=== PATIENT | female | born 1985 | race Caucasian/White ===

== ENCOUNTER 2020-02-26 03:11 | Observation (INO) ==
[2020-02-26] MEDS ORDERED: 0.9 % Sodium Chloride 1,000 ML IVC ONE (03:28)
[2020-02-26] MEDS ORDERED: Famotidine 20 MG/2 ML VIAL IVP ONE (03:28)
[2020-02-26] MEDS ORDERED: methylPREDNISolone 125 MG/2 ML VIAL IVP ONE (03:28)
[2020-02-26] MEDS ORDERED: EPINEPHrine 1 MG/ML VIAL IM ONE (07:00)
[2020-02-26] MEDS ORDERED: Ondansetron 4 MG/2 ML VIAL IVP PRN (07:22)
[2020-02-26] MEDS ORDERED: Naloxone 0.4 MG/ML INJ IVP PRN (07:22)
[2020-02-26 07:43] LABS: Basophils % 0.2 %; Eosinophils % 0.1 %; Hematocrit 44.2 % (35.3-44.9); Hemoglobin 14.4 g/dL (11.5-15.4); Immature Granulocytes % 0.7 % (0-4); Lymphocytes # 1.4 K/mcL (0.6-4.6); Lymphocytes % 8.9 %; Mean Corpuscular HGB Conc 32.6 g/dL (31.6-35.5); Mean Corpuscular Volume 85.8 fL (83.0-100.0); Monocytes # 0.2 K/mcL (0.0-1.3); Monocytes % 1.6 %; Neutrophils # 13.5 K/mcL (1.6-8.9); Platelet Count 245 K/mcL (140-400); Red Blood Count 5.15 M/mcL (3.82-4.97); Red Cell Distribution Width 13.2 % (11.5-14.5); Segmented Neutrophils % 88.5 %; White Blood Count 15.2 K/mcL (4.3-11.1)
[2020-02-26 08:28] LABS: Alanine Aminotransferase 15 Units/L (7-52); Albumin 3.9 g/dL (3.5-5.7); Albumin/Globulin Ratio 1.4 (1.1-2.2); Alkaline Phosphatase 106 Units/L (34-104); Aspartate Amino Transferase 12 Units/L (13-39); BUN/Creatinine Ratio 16 (6-26); Bilirubin,Total 0.4 mg/dL (0.3-1.0); Blood Urea Nitrogen 13 mg/dL (6-20); C-Reactive Protein 24 mg/L (Less than 10); Calcium 8.6 mg/dL (8.6-10.3); Carbon Dioxide 21 mEq/L (23-29); Chloride 106 mEq/L (98-107); Globulin 2.8 g/dL (2.4-3.5); Glucose 188 mg/dL (70-105); Osmolality,Calculated 283 (280-300); Potassium 4.5 mEq/L (3.5-5.1); Sodium 134 mEq/L (136-145); Total Protein 6.7 g/dL (6.4-8.9); eGFR For African Americans > 60 (> 60); eGFR For Non-African Americans > 60 (> 60)
[2020-02-26] MEDS ORDERED: Loratadine 10 MG TABLET PO ONE (09:21)
[2020-02-26] MEDS ORDERED: *HR* Enoxaparin 40 MG/0.4 ML SYRINGE SQ ONE (09:37)
[2020-02-26] MEDS: 0.9 % Sodium Chloride 1,000 ML IVC SCH ×2 (09:50→17:40)
[2020-02-26] MEDS: Famotidine 20 MG TABLET PO SCH (21:52)
[2020-02-26] MEDS: Loratadine 10 MG TABLET PO SCH (21:52)
[2020-02-27] MEDS: *HR* Enoxaparin 40 MG/0.4 ML SYRINGE SQ SCH (05:16)
[2020-02-27 06:22] LABS: BUN/Creatinine Ratio 16 (6-26); Blood Urea Nitrogen 13 mg/dL (6-20); Calcium 8.4 mg/dL (8.6-10.3); Carbon Dioxide 25 mEq/L (23-29); Chloride 107 mEq/L (98-107); Glucose 126 mg/dL (70-105); Osmolality,Calculated 288 (280-300); Potassium 3.7 mEq/L (3.5-5.1); Sodium 138 mEq/L (136-145); eGFR For African Americans > 60 (> 60); eGFR For Non-African Americans > 60 (> 60)
[2020-02-27] MEDS: Famotidine 20 MG TABLET PO SCH ×2 (08:03→20:13)
[2020-02-27] MEDS: predniSONE 20 MG TABLET PO SCH (08:03)
[2020-02-27] MEDS: Loratadine 10 MG TABLET PO SCH ×2 (08:03→20:13)
[2020-02-27 08:46] LABS: Estimated Average Glucose 151 mg/dl
[2020-02-27] MEDS ORDERED: Dextrose Gel 15 GM/37.5 ML TUBE PO PRN ×2 (11:54)
[2020-02-27] MEDS ORDERED: *HR* Dextrose 50 % in Water (Syg) 50 ML SYRINGE IVP PRN (11:54)
[2020-02-27] MEDS ORDERED: D5% in Water 1,000 ML IVC PRN (11:54)
[2020-02-27] MEDS: Insulin LISPRO 300 UNITS/3 ML VIAL SQ SCH ×2 (16:19→20:15)
[2020-02-27] MEDS ORDERED: Ketorolac 15 MG/ML VIAL IVP ONE (19:39)
[2020-02-28 02:16] LABS: Basophils % 0.2 %; Eosinophils % 0.3 %; Hematocrit 38.9 % (35.3-44.9); Immature Granulocytes % 0.5 % (0-4); Lymphocytes # 3.4 K/mcL (0.6-4.6); Lymphocytes % 28.1 %; Mean Corpuscular HGB Conc 31.9 g/dL (31.6-35.5); Mean Corpuscular Hemoglobin 27.7 pg (28.0-33.3); Monocytes # 0.4 K/mcL (0.0-1.3); Monocytes % 3.5 %; Neutrophils # 8.2 K/mcL (1.6-8.9); Platelet Count 230 K/mcL (140-400); Red Blood Count 4.47 M/mcL (3.82-4.97); Red Cell Distribution Width 13.4 % (11.5-14.5); Segmented Neutrophils % 67.4 %; White Blood Count 12.2 K/mcL (4.3-11.1)
[2020-02-28 02:19] LABS: Hemoglobin 12.4 g/dL (11.5-15.4)
[2020-02-28 02:28] LABS: BUN/Creatinine Ratio 14 (6-26); Blood Urea Nitrogen 14 mg/dL (6-20); Calcium 8.7 mg/dL (8.6-10.3); Carbon Dioxide 25 mEq/L (23-29); Chloride 104 mEq/L (98-107); Glucose 120 mg/dL (70-105); Osmolality,Calculated 286 (280-300); Potassium 3.7 mEq/L (3.5-5.1); Sodium 137 mEq/L (136-145); eGFR For African Americans > 60 (> 60); eGFR For Non-African Americans > 60 (> 60)
[2020-02-28] MEDS ORDERED: hydrOXYzine pamoate 25 MG CAPSULE PO PRN ×2 (02:50→03:32)
[2020-02-28] MEDS: *HR* Enoxaparin 40 MG/0.4 ML SYRINGE SQ SCH (05:48)
[2020-02-28] MEDS: Acetaminophen 325 MG TABLET PO PRN ×2 (08:30→20:03)
[2020-02-28] MEDS: predniSONE 20 MG TABLET PO SCH (08:31)
[2020-02-28] MEDS: Famotidine 20 MG TABLET PO SCH ×2 (08:31→20:03)
[2020-02-28] MEDS: Loratadine 10 MG TABLET PO SCH ×2 (08:32→20:03)
[2020-02-28] MEDS: Insulin LISPRO 300 UNITS/3 ML VIAL SQ SCH ×4 (08:35→20:07)
[2020-02-29] MEDS: *HR* OxyCODONE Immed Rel 5 MG TABLET PO PRN ×2 (00:16→08:54)
[2020-02-29 01:47] LABS: Hematocrit 34.8 % (35.3-44.9); Hemoglobin 11.4 g/dL (11.5-15.4); Mean Corpuscular HGB Conc 32.8 g/dL (31.6-35.5); Mean Corpuscular Hemoglobin 28.6 pg (28.0-33.3); Mean Corpuscular Volume 87.2 fL (83.0-100.0); Mean Platelet Volume 9.9 fL (9.4-12.4); Platelet Count 236 K/mcL (140-400); Red Blood Count 3.99 M/mcL (3.82-4.97); Red Cell Distribution Width 13.2 % (11.5-14.5); White Blood Count 12.5 K/mcL (4.3-11.1)
[2020-02-29] MEDS: Acetaminophen 325 MG TABLET PO PRN (05:04)
[2020-02-29] MEDS: *HR* Enoxaparin 40 MG/0.4 ML SYRINGE SQ SCH (05:05)
[2020-02-29 08:02] VITALS: BP 104/68
[2020-02-29] MEDS: Insulin LISPRO 300 UNITS/3 ML VIAL SQ SCH (08:34)
[2020-02-29] MEDS: Loratadine 10 MG TABLET PO SCH (08:46)
[2020-02-29] MEDS: predniSONE 20 MG TABLET PO SCH (08:46)
[2020-02-29] MEDS: Famotidine 20 MG TABLET PO SCH (08:46)
== END 2020-02-29 11:24 | disposition home or self-care (01) ==
LOC: 3BNU 03:11 → EMEROOARM 03:11 → 3BNU 08:20
PROVIDERS: ADMIT Student in an Organized Health Care Education/Training Program; ATTEND Student in an Organized Health Care Education/Training Program

== ENCOUNTER 2020-12-31 19:12 | Inpatient (IN) ==
[2020-12-31 20:03] LABS: Basophils # 0.2 K/mcL (0.0-0.2); Basophils % 0.9 %; Eosinophils # 0.1 K/mcL (0.0-0.6); Eosinophils % 0.6 %; Hematocrit 41.2 % (35.3-44.9); Hemoglobin 13.8 g/dL (11.5-15.4); Immature Granulocytes % 0.4 % (0-4); Lymphocytes % 24.2 %; Mean Corpuscular HGB Conc 33.5 g/dL (31.6-35.5); Mean Corpuscular Hemoglobin 28.1 pg (28.0-33.3); Mean Corpuscular Volume 83.9 fL (83.0-100.0); Monocytes # 0.7 K/mcL (0.0-1.3); Monocytes % 4.5 %; Neutrophils # 11.4 K/mcL (1.6-8.9); Platelet Count 384 K/mcL (140-400); Red Blood Count 4.91 M/mcL (3.82-4.97); Red Cell Distribution Width 12.5 % (11.5-14.5); Segmented Neutrophils % 69.4 %; White Blood Count 16.5 K/mcL (4.3-11.1)
[2020-12-31 20:11] LABS: Estimated Average Glucose 126 mg/dl
[2020-12-31 20:35] LABS: Acetaminophen < 10 mcg/mL (10-20); Alanine Aminotransferase 13 Units/L (7-52); Albumin 4.2 g/dL (3.5-5.7); Albumin/Globulin Ratio 1.4 (1.1-2.2); Alkaline Phosphatase 101 Units/L (34-104); Aspartate Amino Transferase 12 Units/L (13-39); BUN/Creatinine Ratio 15 (6-26); Bilirubin,Indirect 0.5 mg/dL (0.0-1.0); Bilirubin,Total 0.5 mg/dL (0.3-1.0); Blood Urea Nitrogen 16 mg/dL (6-20); Calcium 9.5 mg/dL (8.6-10.3); Carbon Dioxide 24 mEq/L (23-29); Chloride 104 mEq/L (98-107); Chol/HDL Ratio 5.1 (0-4.9); Cholesterol 164 mg/dL (< 200); Ethanol < 10 mg/dL (Less than 10); Globulin 3.1 g/dL (2.4-3.5); Glucose 120 mg/dL (70-105); HDL Cholesterol 32 mg/dL (40-59); LDL Cholesterol,Calculated 109 mg/dL (< 100); Osmolality,Calculated 288 (280-300); Potassium 3.6 mEq/L (3.5-5.1); Salicylate < 2.5 mg/dL (15.0-30.0); Sodium 138 mEq/L (136-145); Total Protein 7.3 g/dL (6.4-8.9); Triglycerides 116 mg/dL (< 150); eGFR For African Americans > 60 (> 60); eGFR For Non-African Americans > 60 (> 60)
[2020-12-31 20:37] LABS: Thyroid Stimulating Hormone 2.162 mcIU/mL (0.340-5.600)
[2020-12-31 21:09] LABS: Bacteria,Urine Few per hpf (None-Few); Bilirubin,Urine Negative (Negative); Blood,Urine Negative (Negative); Clarity,Urine Turbid (Clear); Color,Urine Light-Yellow (Yellow); Glucose,Urine (UA) Normal (Normal); Hyaline Casts,Urine Few per lpf (None Seen); Ketones,Urine Negative (Negative); Leukocyte Esterase,Urine Negative (Negative); Mucus,Urine Few per lpf (None-Few); Nitrite,Urine Negative (Negative); PH,Urine 6.5 pH Units (5.0-8.0); Protein,Urine Negative (Neg-Trace); RBC,Urine 0-3 per hpf (0-3); Specific Gravity,Urine 1.009 (1.010-1.025); Squamous Epithelial Cell,Urine Moderate per hpf (None-Few); Urobilinogen,Urine Normal (Normal); WBC,Urine 0-3 per hpf (0-3)
[2020-12-31 21:19] LABS: Amphetamine Screen,Urine Positive ng/mL (Cutoff=1000); Barbiturate Screen,Urine Negative ng/mL (Cutoff=200); Benzodiazepines Screen,Urine Negative ng/mL (Cutoff=200); Cannabinoid Screen,Urine Negative ng/mL (Cutoff = 50); Cocaine Screen,Urine Negative ng/mL (Cutoff= 300); Opiate Screen,Urine Negative ng/mL (Cutoff=300); Phencyclidine Screen,Urine Negative ng/mL (Cutoff=25)
[2021-01-01 01:38] LABS: Adenovirus Not Detected (Not Detect); Bordetella Pertussis Not Detected (Not Detect); Chlamydophila pneumoniae Not Detected (Not Detect); Coronavirus 229E Not Detected (Not Detect); Coronavirus HKU1 Not Detected (Not Detect); Coronavirus NL63 Not Detected (Not Detect); Coronavirus OC43 Not Detected (Not Detect); Human Metapneumovirus Not Detected (Not Detect); Human Rhinovirus/Enterovirus Not Detected (Not Detect); Influenza A Subtype 2009 H1 Not Detected (Not Detect); Influenza B Not Detected (Not Detect); Mycoplasma pneumoniae Not Detected (Not Detect); Parainfluenza Virus 1 Not Detected (Not Detect); Parainfluenza Virus 2 Not Detected (Not Detect); Parainfluenza Virus 3 Not Detected (Not Detect); Parainfluenza Virus 4 Not Detected (Not Detect); Respiratory Syncytial Virus Not Detected (Not Detect); SARS-CoV-2 Not Detected (Not Detect)
[2021-01-01] MEDS ORDERED: Haloperidol Lactate 5 MG/ML VIAL IM PRN (01:57)
[2021-01-01] MEDS ORDERED: Mag Hydrox/Al Hydrox/Simeth 30 ML UDC PO PRN (01:57)
[2021-01-01] MEDS ORDERED: *HR* LORazepam 1 MG TABLET PO PRN (01:57)
[2021-01-01] MEDS ORDERED: haloperidoL 5 MG TABLET PO PRN (01:57)
[2021-01-01] MEDS ORDERED: *HR* LORazepam 2 MG/ML VIAL IM PRN (01:57)
[2021-01-01] MEDS: Acetaminophen 325 MG TABLET PO PRN (10:51)
[2021-01-01] MEDS: ARIPiprazole 5 MG TABLET PO SCH (12:18)
[2021-01-02] MEDS: ARIPiprazole 5 MG TABLET PO SCH (08:53)
[2021-01-02] MEDS: MOM Conc 10 ML UD.LIQ PO PRN (08:53)
[2021-01-02] MEDS: traZODone 50 MG TABLET PO PRN (20:17)
[2021-01-03] MEDS ORDERED: ARIPiprazole 10 MG TABLET PO SCH (09:00)
[2021-01-03] MEDS: Acetaminophen 325 MG TABLET PO PRN (09:50)
[2021-01-04] MEDS: ARIPiprazole 10 MG TABLET PO SCH (08:25)
[2021-01-04] MEDS: hydrOXYzine pamoate 25 MG CAPSULE PO PRN (14:39)
[2021-01-04] MEDS: traZODone 50 MG TABLET PO PRN (20:36)
[2021-01-05] MEDS: ARIPiprazole 10 MG TABLET PO SCH (08:47)
[2021-01-05] MEDS: traZODone 50 MG TABLET PO PRN (20:30)
[2021-01-06] MEDS: ARIPiprazole 10 MG TABLET PO SCH (21:28)
[2021-01-06] MEDS: traZODone 50 MG TABLET PO PRN (21:28)
[2021-01-07] MEDS: MOM Conc 10 ML UD.LIQ PO PRN (11:29)
[2021-01-07] MEDS: ARIPiprazole 10 MG TABLET PO SCH (20:19)
[2021-01-07] MEDS: hydrOXYzine pamoate 25 MG CAPSULE PO PRN (20:19)
[2021-01-08 08:50] VITALS: BP 105/67
[2021-01-08] MEDS ORDERED: Bisacodyl 10 MG RECTAL SUPPOSITORY RC ONE (10:37)
[2021-01-08] MEDS: MOM Conc 10 ML UD.LIQ PO PRN (13:43)
== END 2021-01-08 14:50 | disposition home or self-care (01) | DRG 885 ==
LOC: EMEROOARM 19:12 → SUATTDRO 01-01 01:55 → 1ANU 01-01 01:55
PROVIDERS: ADMIT Psychiatry & Neurology Psychiatry; ATTEND Psychiatry & Neurology Psychiatry